=== PATIENT | female | born 1945 | race Hispanic/Latino ===

== ENCOUNTER 2018-05-22 07:22 | Observation (INO) | payer OTHER ==
[2018-05-22 07:29] VITALS: BMI 30.4
--- NOTE | 2018-05-22 08:18 | ED PDOC ---
Arrival/HPI - General Chief Complaint: Chest Pain Time Seen by Provider: 05/22/18 07:55 Historian: Patient - History of Present Illness Narrative History of Present Illness (Text): 05/22/18 08:20 A 72 y/o F w/ h/o GERD, diabetes, TIA, diverticulitis, and hiatal hernia, presents to the emergency department complaining of pressure-like chest pain and dizziness for the past week. Patient reports experiencing cold-like symptoms earlier this past week, which is now slowly resolving, and later began having diarrhea (pasty-like), intermittent nausea, lightheadedness, and flatulence. Patient denies any vomiting, leg swelling, or any other complaints at this time. Of note, she states she normally takes Protonix in the morning and 2 Advils (for bilateral leg pain). She did not take her medications this morning and has been unable to eat breakfast. Patient reports taking an Advil last night. She denies any history of smoking, having a colonoscopy (however admits to having endoscopy, revealing polyps 3-4 years ago), and no history of ulcers. She mentions also earlier this week having fallen to the floor after missing the chair, however denies any head trauma, neck pain or LOC. PMD: Dr. Domingo Augustin [employer] Production Professional: Dr. Self(cardiology) GI: Dr. Sorenson Time/Duration: 1 week Symptom Onset: Gradual Symptom Course: Unchanged Quality: Gas Like Severity Level: Moderate Activities at Onset: Rest Context: Home Past Medical History - Provider Review Nursing Documentation Reviewed: Yes - Infectious Disease Hx of Infectious Diseases: None - Tetanus Immunization Tetanus Immunization: Unknown - Cardiac Hx Cardiac Disorders: Yes Hx Hypertension: Yes - Pulmonary Hx Respiratory Disorders: No - Neurological Hx Neurological Disorder: No - HEENT Hx HEENT Disorder: Yes Hx Glaucoma: Yes - Renal Hx Renal Disorder: No - Endocrine/Metabolic Hx Endocrine Disorders: No - Hematological/Oncological Hx Blood Disorders: No - Integumentary Hx Dermatological Disorder: No - Musculoskeletal/Rheumatological Hx Arthritis: Yes - Gastrointestinal Hx Gastrointestinal Disorders: Yes Hx Gastroesophageal Reflux: Yes - Genitourinary/Gynecological Hx Genitourinary Disorders: Yes Hx Reproductive Disorders: Yes (hx partial hyst,tubal) - Psychiatric Hx Psychophysiologic Disorder: No Hx Depression: No Hx Emotional Abuse: No Hx Physical Abuse: No Hx Substance Use: No - Surgical History Hx Cholecystectomy: Yes Hx Hysterectomy: Yes (partial) Hx Orthopedic Surgery: Yes (l hip) - Anesthesia Hx Anesthesia: Yes Hx Anesthesia Reactions: No Hx Malignant Hyperthermia: No - Suicidal Assessment Feels Threatened In Home Enviroment: No Family/Social History - Physician Review Nursing Documentation Reviewed: Yes Family/Social History: No Known Family HX Smoking Status: Never Smoked Hx Alcohol Use: No Hx Substance Use: No Hx Substance Use Treatment: No Allergies/Home Meds Allergies/Adverse Reactions: Allergies tetracycline Allergy (Verified 05/22/18 11:51) SHORTNESS OF BREATH Home Medications: Home Meds Medication Instructions Recorded Confirmed Aspirin [Ecotrin] 1 tab PO DAILY 12/26/15 05/22/18 Bimatoprost [Lumigan] 1 drop OU DAILY 05/22/18 05/22/18 Bimatoprost [Lumigan] 1 drop OU DAILY 05/22/18 05/22/18 Pantoprazole Sodium [Protonix] 40 mg PO DAILY 05/22/18 05/22/18 Timolol 0.25% Ophth [Timoptic 1 drop OU DAILY 05/22/18 05/22/18 0.25% Ophth Soln] metFORMIN [glucOPHAGE] 500 mg PO BID 05/22/18 05/22/18 Review of Systems - Physician Review All systems were reviewed & negative as marked: Yes - Review of Systems Constitutional: absent: Fevers, Night Sweats Respiratory: absent: SOB, Cough Cardiovascular: Chest Pain (pressure-like) Gastrointestinal: Diarrhea (pasty-like, as patient describes.), Nausea ( intermittently), Other (gas). absent: Abdominal Pain, Vomiting Neurological: Dizziness (lightheadedness) Physical Exam Vital Signs Reviewed: Yes Vital Signs Temp Pulse Resp BP Pulse Ox 05/22/18 12:00 98.2 F 62 18 150/76 99 05/22/18 11:03 55 L 18 136/62 99 05/22/18 09:15 65 18 132/70 99 05/22/18 07:35 98.3 F 61 18 144/77 98 05/22/18 07:34 98.3 F 61 18 144/77 98 Temperature: Afebrile Blood Pressure: Normal Pulse: Regular Respiratory Rate: Normal Appearance: Positive for: Well-Appearing Pain Distress: None Mental Status: Positive for: Alert and Oriented X 3 - Systems Exam Head: Present: Atraumatic, Normocephalic Pupils: Present: PERRL Extroacular Muscles: Present: EOMI Conjunctiva: Present: Normal Mouth: Present: Moist Mucous Membranes Neck: Present: Normal Range of Motion Respiratory/Chest: Present: Clear to Auscultation, Good Air Exchange. No: Respiratory Distress, Accessory Muscle Use Cardiovascular: Present: Regular Rate and Rhythm, Normal S1, S2. No: Murmurs Abdomen: No: Tenderness, Distention, Peritoneal Signs Back: Present: Normal Inspection Upper Extremity: Present: Normal Inspection. No: Cyanosis, Edema Lower Extremity: Present: Normal Inspection. No: Edema Neurological: Present: GCS=15, CN II-XII Intact, Speech Normal Skin: Present: Warm, Dry, Normal Color. No: Rashes Psychiatric: Present: Alert, Oriented x 3, Normal Insight, Normal Concentration Medical Decision Making ED Course and Treatment: 05/22/18 08:30 Impression: 72 year old female with chest pressure, bloating and dizziness Differential Diagnosis included but are not limited to: ACS Gastroenteritis/Gastritis TIA Toxic metabolic encephalopathy Plan: -- EKG -- Head CT -- Chest X-ray -- Labs -- Urinalysis -- Pepcid -- IV Fluids -- Maalox -- Reassess and disposition Prior Visits: Notes and results from previous visits were reviewed. Patient was last seen in the emergency department on 11/04/2016 for tingling on lips, numbness and tingling of left lower leg/foot/toes, chest pressure. Patient was admitted. Progress Notes: EKG: Ordered, reviewed, and independently interpreted the EKG. Rate : 66 BPM Rhythm : NSR Interpretation : RBBBB Flipped T-waves in precordial leads. Comparison : No previous EKG for comparison. 05/22/2018 09:21 Chest X-ray IMPRESSION: No active pulmonary disease. Dictator: Alyssa Costello MD 05/22/2018 10:[address] IMPRESSION: No acute intracranial abnormality. A preliminary report was provided by [facility] services. Dictator: Alyssa Costello MD 05/22/18 11:25 Patient reassessed and still complaining of dizziness and sinus pressure. Spoke to Dr. Nazario Conner(hospitalist) who accepts patient for Observation. - Lab Interpretations Lab Results: 05/22/18 08:55 08/20/18 08:55 Lab Results 05/22/18 10:00: Free T4 1.23, TSH 3rd Generation 2.37 05/22/18 10:00: Hemoglobin A1c 7.0 H 05/22/18 08:55: Urine Color Yellow, Urine Appearance Clear, Urine pH 6.0, Ur Specific Merritt 1.010, Urine Protein Negative, Urine Glucose (UA) Negative, Urine Ketones Negative, Urine Blood Negative, Urine Nitrate Negative, Urine Bilirubin Negative, Urine Urobilinogen 0.2, Ur Leukocyte Esterase Trace H, Urine RBC 0 - 2, Urine WBC 1 - 3, Ur Epithelial Cells 3 - 4, Urine Bacteria Few 05/22/18 08:55: PT 11.4, INR 0.99, APTT 27.5 05/22/18 08:55: WBC 6.4, RBC 4.61, Hgb 13.7, Hct 40.9, MCV 88.7, MCH 29.7, MCHC 33.5, RDW 14.1, Plt Count 180, MPV 9.6, Gran % 48.3 L, Lymph % (Auto) 41.1 H, Greenwood % (Auto) 7.5 H, Eos % (Auto) 2.8, Baso % (Auto) 0.3, Gran # 3.10, Lymph # ( Auto) 2.6, Greenwood # (Auto) 0.5, Eos # (Auto) 0.2, Baso # (Auto) 0.02 05/22/18 08:55: Sodium 145, Potassium 3.7, Chloride 107, Carbon Dioxide 27, Anion Gap 15, BUN 11, Creatinine 0.7, Est GFR ( Amer) > 60, Est GFR (Non- Af Amer) > 60, Random Glucose 124 H, Calcium 9.0, Total Bilirubin 0.4, AST 34, ALT 43, Alkaline Phosphatase 67, Troponin I < 0.01, Total Protein 7.4, Albumin 4.1, Globulin 3.3, Albumin/Globulin Ratio 1.2, Lipase 54 - RAD Interpretation Radiology Orders: 05/22/18 08:09 HEAD W/O CONTRAST [CT] Stat 05/22/18 08:33 CHEST PORTABLE [RAD] Stat - Medication Orders Current Medication Orders: Acetaminophen (Tylenol 325mg Tab) 650 mg PO Q6H PRN PRN Reason: Fever >100.4 F Aspirin (Ecotrin) 81 mg PO DAILY ASHA Camphor/Menthol (Bengay) 0 gm TOP BID ASHA Last Admin: 05/22/18 17:05 Dose: 1 applic Insulin Human Regular (Humulin R Low) 0 units SC ACHS [facility] PRN Reason: Protocol Last Admin: 05/22/18 17:09 Dose: Not Given Non-Admin Reason: Blood Sugar Parameter MAR Blood Glucose Document 05/22/18 17:09 FRANK (Rec: 05/22/18 17:09 [facility] [id number]) Blood Glucose Finger Stick Blood Glucose (70-120) 92 Pantoprazole Sodium (Protonix Ec Tab) 40 mg PO DAILY [facility] Last Admin: 05/22/18 11:53 Dose: 40 mg Timolol Maleate (Timoptic 0.25% Ophth Soln) 1 drop OU DAILY [facility] Discontinued Medications Al Hydrox/Mg Hydrox/Simethicone (Maalox Plus 30 Ml) 30 ml PO STAT STA Stop: 05/22/18 08:35 Last Admin: 05/22/18 08:45 Dose: 30 ml Famotidine (Pepcid) 20 mg IVP STAT STA Stop: 05/22/18 08:35 Last Admin: 05/22/18 08:45 Dose: 20 mg IVP Administration Document 05/22/18 08:45 ASHLEY (Rec: 05/22/18 08:45 ASHLEY [email or web address]) Charges for Administration # of IVP Administrations 1 Sodium Chloride (Sodium Chloride 0.9%) 1,000 mls @ 999 mls/hr IV .Q1H1M STA Stop: 05/22/18 09:34 Last Admin: 05/22/18 08:45 Dose: 999 mls/hr eMAR Start Stop Document 05/22/18 08:45 ASHLEY (Rec: 05/22/18 08:45 ASHLEY [id number]) Intravenous Solution Start Date 05/22/18 Start Time 08:45 End Date 05/22/18 End time 09:45 Total Infusion Time 60 Meclizine HCl (Antivert) 25 mg PO STAT STA Stop: 05/22/18 10:28 Last Admin: 05/22/18 11:02 Dose: 25 mg Metoclopramide HCl (Reglan) 10 mg IVP STAT STA Stop: 05/22/18 10:27 Last Admin: 05/22/18 11:02 Dose: 10 mg IVP Administration Document 05/22/18 11:02 ASHLEY (Rec: 05/22/18 11:02 ASHLEY [id number]) Charges for Administration # of IVP Administrations 1 Pneumococcal Polyvalent Vaccine (Pneumovax 23 Vaccine) 0.5 ml IM .ONCE ONE Stop: 05/22/18 14:28 - Scribe Statement The provider has reviewed the documentation as recorded by the Maguiibe Janelle Olivares Provider Scribe Attestation: All medical record entries made by the Scribe were at my direction and personally dictated by me. I have reviewed the chart and agree that the record accurately reflects my personal performance of the history, physical exam, medical decision making, and the department course for this patient. I have also personally directed, reviewed, and agree with the discharge instructions and disposition. Disposition/Present on Arrival - Present on Arrival Any Indicators Present on Arrival: No History of DVT/PE: No History of Uncontrolled Diabetes: No Urinary Catheter: No History of Decub. Ulcer: No History Surgical Site Infection Following: None - Disposition Have Diagnosis and Disposition been Completed?: Yes Diagnosis: Dizziness Disposition: HOSPITALIZED Disposition Time: 11:33 Patient Plan: Observation Patient Problems: Current Active Problems Problem Status Onset Dizziness Acute Condition: STABLE
[2018-05-22] MEDS ORDERED: Sodium Chloride 0.9% 1,000 ML IV STA (08:34)
[2018-05-22] MEDS ORDERED: Alum-Mag Hydrox-Simethicone Susp (30 mL) PO STA (08:34)
[2018-05-22 09:20] LABS: BASO # 0.02 K/mm3 (0.0-2.0); BASO % 0.3 % (0.0-3.0); EOS # 0.2 (0.0-0.7); EOS % 2.8 % (1.5-5.0); GRAN # 3.1 (1.4-6.5); GRAN % 48.3 % (50.0-68.0); HEMOGLOBIN 13.7 g/dL (12.0-16.0); LYMPH # 2.6 (1.2-3.4); LYMPH % 41.1 % (22.0-35.0); MEAN CELL VOLUME 88.7 fl (80.0-105.0); MEAN CORPUSCULAR HEMOGLOBIN 29.7 pg (25.0-35.0); MEAN CORPUSCULAR HGB CONC 33.5 g/dl (31.0-37.0); MEAN PLATELET VOLUME 9.6 fl (7.0-11.0); MONO # 0.5 (0.1-0.6); MONO % 7.5 % (1.0-6.0); RBC 4.61 10^6/uL (3.5-6.1); RED CELL DISTRIBUTION WIDTH 14.1 % (11.5-14.5); WHITE BLOOD COUNT 6.4 10^3/ul (4.5-11.0)
[2018-05-22 09:22] LABS: URINE BILIRUBIN NEGATIVE (NEGATIVE); URINE BLOOD NEGATIVE (NEGATIVE); URINE GLUCOSE (UA) NEGATIVE (NEGATIVE); URINE LEUKOCYTE ESTERASE TRACE Leu/uL (NEGATIVE); URINE PROTEIN NEGATIVE mg/dL (<30 mg/dL); URINE UROBILINOGEN 0.2 E.U./dL (<1 E.U./dL)
--- NOTE | 2018-05-22 09:23 | RAD ---
Date of service: 05/22/2018 HISTORY: Shortness of breath COMPARISON: 11/04/2016. FINDINGS: LUNGS: The lungs are well inflated and clear. PLEURA: No significant pleural effusion identified, no pneumothorax apparent. CARDIOVASCULAR: There is mild cardiomegaly. OSSEOUS STRUCTURES: No significant abnormalities. VISUALIZED UPPER ABDOMEN: Normal. OTHER FINDINGS: None. IMPRESSION: No active pulmonary disease.
[2018-05-22 09:25] LABS: URINE APPEARANCE CLEAR (CLEAR); URINE COLOR YELLOW (YELLOW)
[2018-05-22 09:26] LABS: ALB/GLOB RATIO 1.2 (1.1-1.8); ALBUMIN 4.1 g/dL (3.0-4.8); ALT/SGPT 43 U/L (7-56); AST/SGOT 34 U/L (14-36); BLOOD UREA NITROGEN 11 mg/dL (7-21); GFR AFRICAN-AMERICAN > 60; GFR NON-AFRICAN AMERICAN > 60; LIPASE 54 U/L (23-300)
[2018-05-22 09:29] LABS: INR 0.99; PROTHROMBIN TIME 11.4 SECONDS (9.4-12.5)
[2018-05-22 09:33] LABS: URINE BACTERIA FEW (NEG); URINE RBC 0 - 2 /hpf (0-2)
[2018-05-22 09:35] LABS: PARTIAL THROMBOPLASTIN TIME 27.5 Seconds (25.1-36.5)
[2018-05-22 09:36] LABS: TROPONIN I < 0.01 ng/mL
--- NOTE | 2018-05-22 10:14 | CT ---
Date of service: 05/22/2018 PROCEDURE: CT HEAD WITHOUT CONTRAST. HISTORY: Headache COMPARISON: 11/04/2016 TECHNIQUE: Axial computed tomography images were obtained through the head/brain without intravenous contrast. Radiation dose: Total exam DLP = 837.97 mGy-cm. This CT exam was performed using one or more of the following dose reduction techniques: Automated exposure control, adjustment of the mA and/or kV according to patient size, and/or use of iterative reconstruction technique. FINDINGS: HEMORRHAGE: No intracranial hemorrhage. BRAIN: Valdez-white matter differentiation is preserved. There is no mass, mass effect or abnormal extra-axial fluid collection. There is no territorial infarction. The midline sagittal structures are normal. VENTRICLES: There is mild age-related global parenchymal volume loss and proportionate enlargement of the ventricles and cortical sulci. CALVARIUM: The skull base and calvarium are normal. PARANASAL SINUSES: Predominantly clear. MASTOID AIR CELLS: Predominantly clear. OTHER FINDINGS: None. IMPRESSION: No acute intracranial abnormality. A preliminary report was provided by [employer] services.
[2018-05-22] MEDS ORDERED: Timolol 0.25% Ophth SOLN OU SCH (11:30)
--- NOTE | 2018-05-22 11:50 | CP.PCM.HP ---
<Beronica Estrella - Last Filed: 05/22/18 13:50> History of Present Illness - History of Present Illness History of Present Illness: PGY-[address] Roblero C/O: Dizziness and CP, fall at home Ms Reddy, 72 F, with PMH includes GERD, diabetes, TIA, diverticulitis, hiatal hernia, and chronic back pain on daily advil, c/o Chest pain Pt reported chest pain started 1 week ago, onset while pt was at rest. The chest pain was pressure-like on mid chest, mild-moderate, on-off, radiation to R shoulder and bilateral chest. She had cold like symptoms with sore throat, stuffy nose that week, associated with diarrhea and flatulent. She also noticed dizziness and fell to the floor after missing the chair. She was not able to tolerate breakfast and meds today. Use uses advil twice every day for chronic back pain. She still has diarrhea today; last bowel movement was this morning. Denies recent antibiotics. No change in diet. No sick contact. She only had endoscopy in 2012,2013, showing mild gastritis. No h pylori. Last colonospy was more than 10 years ago. ROS: (+) lightheadedness, (+) CP, (+) dizziness worsen in movement, Denies FARRELL denies any vomiting, leg swelling, abdominal pain, blood in stool. Denies dysuria. BM used to be daily and regular ED course: VS stable CBC unremarkable CMP unremarkable Trops < 0.01 CXR - no active pulm disease Head CT - no acute intracrancial abnomality PMH TIA, 2016 Diabetes x 1 year Diverticultitis Hiatal hernia GERD Chronic back pain, monthly injection PSH Cholecystectomy, L hip replacement FH Father at 93 for [place]. Father had diabetes. Mother at 69 for diabeteis and [place] SH Denies smoking/drinking All Tetracycline - SOB Med Pt stopped ASA because of stomach pain Protonix in the morning and 2 Advils /day(for bilateral leg pain) metformin 500 bid timolol, lumigan PMD: Dr. Domingo Augustin (currently being covered by Dr. Young Roblero) Automatic Pinsetter Adjuster: Dr. Self GI: Dr. Sorenson Pain management: Dr Boyd, [place], [place] Present on Admission - Present on Admission Any Indicators Present on Admission: No Past Patient History - Infectious Disease Hx of Infectious Diseases: None - Tetanus Immunizations Tetanus Immunization: Unknown - Past Social History Smoking Status: Never Smoked - CARDIAC Hx Cardiac Disorders: Yes Hx Hypertension: Yes - PULMONARY Hx Respiratory Disorders: No - NEUROLOGICAL Hx Neurological Disorder: No - HEENT Hx HEENT Problems: Yes Hx Glaucoma: Yes - RENAL Hx Chronic Kidney Disease: No - ENDOCRINE/METABOLIC Hx Endocrine Disorders: No - HEMATOLOGICAL/ONCOLOGICAL Hx Blood Disorders: No - INTEGUMENTARY Hx Dermatological Problems: No - MUSCULOSKELETAL/RHEUMATOLOGICAL Hx Arthritis: Yes - GASTROINTESTINAL Hx Gastrointestinal Disorders: Yes Hx Gastroesophageal Reflux: Yes - GENITOURINARY/GYNECOLOGICAL Hx Genitourinary Disorders: Yes Hx Reproductive Disorders: Yes (hx partial hyst,tubal) - PSYCHIATRIC Hx Psychophysiologic Disorder: No Hx Depression: No Hx Emotional Abuse: No Hx Physical Abuse: No Hx Substance Use: No - SURGICAL HISTORY Hx Cholecystectomy: Yes Hx Hysterectomy: Yes (partial) Hx Orthopedic Surgery: Yes (l hip) - ANESTHESIA Hx Anesthesia: Yes Hx Anesthesia Reactions: No Hx Malignant Hyperthermia: No Meds Allergies/Adverse Reactions: Allergies Allergy/AdvReac Type Severity Reaction Status Date / Time tetracycline Allergy SHORTNESS Verified 05/22/18 11:51 OF BREATH Physical Exam - Constitutional Appears: No Acute Distress - Head Exam Head Exam: ATRAUMATIC, NORMAL INSPECTION, NORMOCEPHALIC - Eye Exam Eye Exam: EOMI, Normal appearance, PERRL. absent: Scleral icterus Pupil Exam: NORMAL ACCOMODATION - ENT Exam ENT Exam: Mucous Membranes Moist - Neck Exam Additional comments: supple - Respiratory Exam Respiratory Exam: Clear to Auscultation Bilateral, NORMAL BREATHING PATTERN. absent: Rales, Rhonchi, Wheezes - Cardiovascular Exam Cardiovascular Exam: REGULAR RHYTHM, +S1, +S2 - GI/Abdominal Exam GI & Abdominal Exam: Soft. absent: Tenderness - Extremities Exam Extremities exam: Positive for: normal capillary refill, pedal pulses present. Negative for: calf tenderness, pedal edema - Back Exam Back exam: absent: CVA tenderness (L), CVA tenderness (R) - Neurological Exam Neurological exam: Alert, CN II-XII Intact, Oriented x3 Additional comments: Danny-hallpike manuver: No nystagmus observed no slurring motor 5/5 sensroy intact - Psychiatric Exam Psychiatric exam: Normal Affect, Normal Mood - Skin Skin Exam: Dry, Warm Results - Vital Signs Recent Vital Signs: Last Vital Signs Temp 98.3 F 05/22/18 07:35 Pulse 55 L 05/22/18 11:03 Resp 18 05/22/18 11:03 BP 136/62 05/22/18 11:03 Pulse Ox 99 05/22/18 11:03 - Labs Result Diagrams: 05/22/18 08:55 05/22/18 08:55 Assessment & Plan - Assessment and Plan (Free Text) Plan: Ms Reddy, 72 F, with PMH includes GERD, diabetes, TIA, diverticulitis, hiatal hernia, and chronic back pain on advil twice daily, c/o Chest pain, dizziness, s/p 1 fall at home. Chest pain R/O ACS - Telemetry, serial trops/EKG - Echocardiogram - Cardiology consult - morphine PRN Questionable atypical chest pain from GERD worsen in setting of hiatal hernia Daily Advil use for chronic back pain - Follow up with Dr Sorenson outpatient for endoscopy and screening colonoscopy - Change to Bengay and tylenol PRN for back pain - Avoid NSAID. Follow up with Pain Managment Dr Boyd for monthly injection - Protonix daily or BID? Nausea/Diarrhea/flatulence, likely viral gastroenteritis - supportive management - Observe off antibiotics - High risk of Cdiff use to chronic protonix use - Tolerating diet of regular consistency Dizziness, likely due to dehydration of low oral intake, r/o neuro vs cardiac causes - Neuro consult - carotid doppler/echocardiogram - orthostatic VS Hx TIA - need aspirin daily. Will observe if pt tolerates it. No sign of GI bleed. Hb normal Fall - PT eval Hx Diabetes x 1 year - ISSS, accucheck Prophylaixs - SCD, continue protonix, OOB s/r/d/w Dr Roblero <Young Roblero S - Last Filed: 05/23/18 14:12> Results - Vital Signs Recent Vital Signs: Last Vital Signs Temp 98.4 F 05/23/18 08:15 Pulse 57 L 05/23/18 08:15 Resp 20 05/23/18 08:15 BP 134/74 05/23/18 08:15 Pulse Ox 97 05/23/18 08:15 - Labs Result Diagrams: 05/22/18 08:55 05/22/18 08:55 Labs: Laboratory Results - last 24 hr 05/22/18 05/22/18 05/22/18 16:17 16:32 21:02 POC Glucose (mg/dL) 92 93 Troponin I < 0.01 05/23/18 05/23/18 05/23/18 01:08 07:20 11:24 POC Glucose (mg/dL) 142 H 142 H Troponin I < 0.01 Assessment & Plan - Assessment and Plan (Free Text) Plan: Pt seen and examined. I have reviewed the note of the adjunct faculty for medical terminology and agree with it. I have discussed the assessment and plan with the resident. I have reviewed the patient's labs and medications. Pt with Dizziness, that has improved. She may have a gastroenteritis. Her blood work is reviewed and no significant changes. EkG and trop nl.Neuro evaluated pt. She will be discharged home.
[2018-05-22] MEDS: Pantoprazole 40 mg EC Tab PO SCH (11:53)
[2018-05-22 13:02] LABS: FREE T4 1.23 ng/dL (0.78-2.19)
[2018-05-22] MEDS ORDERED: Pneumococcal 23-Valent Vaccine IM ONE (14:27)
--- NOTE | 2018-05-22 15:28 | CON ---
Copied To: Carlos Bridges MD Attending MD: Carlos Bridges MD DATE: 05/22/2018 HISTORY OF PRESENT ILLNESS: This is a 72-year-old female with past medical history of diabetes, TIA, GERD, hiatus hernia, diverticulitis, came to the Emergency Room with pressure-like symptoms on the chest and felt dizzy for the last few days. The patient was having a cold-like symptoms for about a week, resolving and called to evaluate the patient for dizziness. PAST MEDICAL HISTORY: Diabetes, hypertension, TIA, GERD, and hiatus hernia. ALLERGIES: TETRACYCLINE. HOME MEDICATIONS: Ecotrin, Protonix, and metformin. REVIEW OF SYSTEMS: A 10-point review of systems was negative except dizziness. PHYSICAL EXAMINATION: VITAL SIGNS: Blood pressure 144/77. HEENT: Normocephalic and atraumatic. NECK: Supple. NEUROLOGIC: Alert, awake, and oriented x3. No aphasia. Cranial nerves II through XII are tested. Pupils reactive. EOM intact. Visual field full. No facial asymmetry. Tongue midline. Motor exam: Moves all the extremities equally. Tone normal. Deep tendon reflexes 1+. Both plantars are downgoing. Sensory appears intact. Cerebellar gait normal. IMPRESSION AND PLAN: Dizziness, possibly benign positional and also has some sinusitis. The patient is ambulating in the hallway, eating well . Workup in progress. Continue present management. We will follow up. Carlos Bridges MD
[2018-05-22] MEDS: Insulin Reg-LOW-Coverage SC SCH ×2 (17:09→21:02)
[2018-05-22] MEDS ORDERED: Menthol/Methyl Salicylate Ointment(1 oz) TOP SCH (18:00)
--- NOTE | 2018-05-22 18:29 | US ---
PROCEDURE: Bilateral carotid artery duplex ultrasound HISTORY: Carotid stenosis dizziness PHYSICIAN(S): Oren Augustin MD. TECHNIQUE: Duplex sonography and color-flow Doppler were used to evaluate the carotid bifurcations and limited segments of the vertebral arteries bilaterally. FINDINGS: There is mild smooth heterogeneous plaque noted at the carotid bifurcations bilaterally. The peak systolic velocity in the proximal right internal carotid artery is 68 cm/sec. This corresponds to a 20 to 39% proximal right ICA stenosis. Normal systolic velocities are noted in the proximal right external carotid artery. There is antegrade flow in the right vertebral artery. The peak systolic velocity in the proximal left internal carotid artery is 93 cm/sec. This corresponds to a 20 to 39% proximal left ICA stenosis. Normal systolic velocities are noted in the proximal left external carotid artery. There is antegrade flow in the left vertebral artery. IMPRESSION: 1. Bilateral 20-39% proximal ICA stenoses. 2. Antegrade flow in both vertebral arteries.
--- NOTE | 2018-05-22 21:28 | CARD ---
APPROVED REPORT Date of service: 05/22/2018 EKG Measurement Heart [id number] <Conclusion> Normal sinus rhythm Right bundle branch block Left anterior fascicular block Bifascicular block T wave abnormality, consider lateral ischemia Abnormal ECG
[2018-05-23 08:16] VITALS: BP 134/74; RESP 20; TEMP 98.4; O2SAT 97
[2018-05-23] MEDS: Insulin Reg-LOW-Coverage SC SCH ×2 (08:27→11:40)
[2018-05-23] MEDS: Pantoprazole 40 mg EC Tab PO SCH (10:40)
--- NOTE | 2018-05-23 14:56 | CP.PCM.PN ---
<Beronica Estrella - Last Filed: 05/23/18 14:52> Subjective - Date & Time of Evaluation Date of Evaluation: 05/23/18 Time of Evaluation: 07:00 - Subjective Subjective: PGY-[address] Roblero new onset urinary frequenct with sinusitis. CP persists, denie n/v/d/c. (+) dizziness same as yesterday Objective - Vital Signs/Intake and Output Vital Signs (last 24 hours): Temp Pulse Resp BP Pulse Ox 98.4 F 57 L 20 134/74 97 05/23/18 08:15 05/23/18 08:15 05/23/18 08:15 05/23/18 08:15 05/23/18 08:15 Intake and Output: 05/23/18 05/23/18 06:59 18:59 Intake Total 540 Balance 540 - Medications Medications: Current Medications Acetaminophen (Tylenol 325mg Tab) 650 mg PO Q6H PRN PRN Reason: Fever >100.4 F Amoxicillin/Clavulanate Potassium (Augmentin 500 Mg-125 Mg Tab) 1 tab PO Q12 ASHA PRN Reason: Protocol Aspirin (Ecotrin) 81 mg PO DAILY [facility] Last Admin: 05/23/18 10:40 Dose: 81 mg Camphor/Menthol (Bengay) 0 gm TOP BID [facility] Last Admin: 05/22/18 17:05 Dose: 1 applic Insulin Human Regular (Humulin R Low) 0 units SC ACHS ASHA PRN Reason: Protocol Last Admin: 05/23/18 11:40 Dose: Not Given Pantoprazole Sodium (Protonix Ec Tab) 40 mg PO DAILY [facility] Last Admin: 05/23/18 10:40 Dose: 40 mg Timolol Maleate (Timoptic 0.25% Ophth Soln) 1 drop OU DAILY ASHA Last Admin: 05/23/18 10:40 Dose: 1 drop - Labs Labs: PT 11.4 SECONDS (9.4-12.5) 05/22/18 08:55 INR 0.99 05/22/18 08:55 APTT 27.5 Seconds (25.1-36.5) 05/22/18 08:55 - Constitutional Appears: No Acute Distress - Head Exam Head Exam: ATRAUMATIC, NORMAL INSPECTION, NORMOCEPHALIC - Eye Exam Eye Exam: EOMI, Normal appearance, PERRL Pupil Exam: absent: NORMAL ACCOMODATION - ENT Exam ENT Exam: Mucous Membranes Moist Additional comments: maxillary tenderness post nasal drip - Neck Exam Additional comments: supple - Respiratory Exam Respiratory Exam: Clear to Ausculation Bilateral, NORMAL BREATHING PATTERN. absent: Rales, Rhonchi, Wheezes - Cardiovascular Exam Cardiovascular Exam: REGULAR RHYTHM, +S1, +S2 - GI/Abdominal Exam GI & Abdominal Exam: Soft, Tenderness (epigastric-mid chest, reproducible pain) - Extremities Exam Extremities Exam: Normal Capillary Refill. absent: Calf Tenderness, Pedal Edema - Back Exam Back Exam: absent: CVA tenderness (L), CVA tenderness (R) - Neurological Exam Neurological Exam: Alert, Awake, Oriented x3 - Psychiatric Exam Psychiatric exam: Normal Affect, Normal Mood - Skin Skin Exam: Dry, Warm Assessment and Plan - Assessment and Plan (Free Text) Plan: Ms Reddy, 72 F, with PMH includes GERD, diabetes, TIA, diverticulitis, hiatal hernia, and chronic back pain on advil twice daily, c/o Chest pain, dizziness, s/p 1 fall at home. Chest pain R/O ACS - Telemetry: bradycardia at night. Asymptomatic - serial trops neg x 3 - EKG: NSR, bifasicular block, TWI inferior leads - Echocardiogram - Cardiology consult Questionable atypical chest pain from GERD worsen in setting of hiatal hernia Daily Advil use for chronic back pain - Follow up with Dr Sorenson outpatient for endoscopy and screening colonoscopy - Change to Bengay and tylenol PRN for back pain - Avoid NSAID. Follow up with Pain Managment Dr Boyd for monthly injection - Protonix daily Nausea/Diarrhea/flatulence, likely viral gastroenteritis - improving UTI - supportive management - augmentin PO for both UTI and sinusitis - High risk of Cdiff use to chronic protonix use - Tolerating diet of regular consistency Dizziness, likely due to benign positional, sinusitis, and orthostatic hypotension Orthostatic hypotension R/O Cardiac causes - carotid doppler: non-obstructing - orthostatic VS (+): maintain adequate hydration. Avoid sudden positional changes - Bradycardia at night: Advise avoid sudden movement at night erica waking up to use bathroom Hx TIA - need aspirin daily. No sign of GI bleed. Hb normal Fall - PT eval Hx Diabetes x 1 year. A1C 7 - ISSS, accucheck Prophylaixs - SCD, continue protonix, OOB Discharge planning: Pending PT eval and card eval to r/o ACS s/r/d/w Dr Roblero <Young Roblero S - Last Filed: 05/24/18 21:09> Objective - Vital Signs/Intake and Output Vital Signs (last 24 hours): Temp Pulse Resp BP Pulse Ox 98.4 F 68 20 134/74 97 05/23/18 08:15 05/23/18 10:00 05/23/18 08:15 05/23/18 08:15 05/23/18 08:15 - Labs Labs: PT 11.4 SECONDS (9.4-12.5) 05/22/18 08:55 INR 0.99 05/22/18 08:55 APTT 27.5 Seconds (25.1-36.5) 05/22/18 08:55 Assessment and Plan - Assessment and Plan (Free Text) Plan: Pt seen and examined. I have reviewed the note of the medical device assembler and agree with it. I have discussed the assessment and plan with the resident. I have reviewed the patient's labs and medications. Pt had dizziness, she was seen by Cardio and cleared to go home. She will follow with pain management. DM- 2 is controlled. Will D/C home.
--- NOTE | 2018-05-23 14:57 | CON ---
Copied To: Oren Self MD Attending MD: Oren Self MD DATE: 05/23/2018 CARDIOLOGY CONSULTATION HISTORY: The patient is a 72-year-old woman, who presents with multiple complaints including headache, dysuria, dizziness, atypical chest pain, abdominal pain, diarrhea. But because of her complaint of chest pain, a Cardiology consultation was called. The patient's past medical history includes diabetes mellitus and hypertension. She underwent a stress test earlier this year, which was unremarkable. She has normal LV function. SOCIAL HISTORY: The patient does not smoke. REVIEW OF SYSTEMS: Fourteen-point review of systems was reviewed in detail. No cardiac complaints are noted. PHYSICAL EXAMINATION: VITAL SIGNS: Stable. NECK: Negative JVD. LUNGS: Without rales. HEART: Reveals S1, S2. EXTREMITIES: Without edema. LABORATORY DATA: Laboratories reveal EKG that shows right bundle-branch block. Laboratories reveal troponins that are negative. Echocardiogram reveals good LV function with no pulmonary hypertension. No LV outflow obstruction. IMPRESSION: 1. Atypical chest pain, likely due to #2. 2. Her abdominal symptoms. 3. History of abnormal electrocardiogram, which is at baseline. 4. Diabetes mellitus. 5. Hypertension. PLAN: Given these findings, there is no evidence for her chest pain be of cardiac origin. We can discontinue telemetry today from a cardiac perspective. The patient can be discharged. Oren Self MD
[2018-05-23] MEDS ORDERED: Amoxicillin-Clav 500-125 mg Tab PO SCH (15:00)
[2018-05-23 15:36] VITALS: PULSE 68
--- NOTE | 2018-05-23 17:54 | CARD ---
APPROVED REPORT Date of service: 05/23/2018 EXAM: Two-dimensional and M-mode echocardiogram with Doppler and color Doppler. INDICATION Chest Pain 2D DIMENSIONS Left Atrium (2D)4.4 (1.6-4.0cm)IVSd1.1 (0.7-1.1cm) LVDd5.1 (3.9-5.9cm)PWd1.1 (0.7-1.1cm) LVDs3.1 (2.5-4.0cm)FS (%) 38.2 % LVEF (%)68.2 (>50%) M-Mode DIMENSIONS Aortic Root3.70 (2.2-3.7cm)Aortic Cusp Exc.1.90 (1.5-2.0cm) Aortic Valve AoV Peak Aucxside515.0cm/Faith Peak GR.9mmHgAI P 1/2 Edvp090zn Mitral Valve MV E Yiizvexb20.2cm/sMV A Tlrlzxrd93.5cm/sE/A ratio0.8 TDI Lateral E' Peak V7.51cm/sMedial E' Peak V5.95cm/sE/Lateral E'7.7 E/Medial E'9.8 Pulmonary Valve PV Peak Eohwlnwy04.9cm/sPV Peak Grad.3mmHg Tricuspid Valve TR Peak Ufoitrbs265um/sRAP DUNDRIBM25tdIyXV Peak Gr.14mmHg [id number] LEFT VENTRICLE The left ventricle is normal size. There is normal left ventricular wall thickness. The left ventricular function is normal. The left ventricular ejection fraction is within the normal range. There is normal LV segmental wall motion. Transmitral Doppler flow pattern is Grade I-abnormal relaxation pattern. RIGHT VENTRICLE The right ventricle is normal size. There is normal right ventricular wall thickness. The right ventricular systolic function is normal. ATRIA The left atrium is borderline dilated. The right atrium size is normal. AORTIC VALVE The aortic valve is normal in structure. There is mild aortic regurgitation. There is no aortic valvular stenosis. MITRAL VALVE The mitral valve is normal in structure. There is no mitral valve regurgitation noted. TRICUSPID VALVE The tricuspid valve is normal in structure. There is no tricuspid valve regurgitation noted. PULMONIC VALVE The pulmonary valve is normal in structure. There is trace pulmonic valvular regurgitation. GREAT VESSELS The aortic root is borderline dilated The IVC is normal in size and collapses >50% with inspiration. <Conclusion> The left ventricle is normal size. There is normal left ventricular wall thickness. The left ventricular function is normal. The left ventricular ejection fraction is within the normal range. There is normal LV segmental wall motion. Transmitral Doppler flow pattern is Grade I-abnormal relaxation pattern. There is mild aortic regurgitation.
--- NOTE | 2018-05-24 11:22 | CP.PCM.DIS ---
Provider - Provider Date of Admission: 05/22/18 11:24 Attending physician: Young Roblero MD Primary care physician: Young Roblero MD Time Spent in preparation of Discharge (in minutes): 30 Diagnosis - Discharge Diagnosis (1) GERD (gastroesophageal reflux disease) Status: Acute (2) Abdominal pain Status: Acute (3) Chest pain Status: Acute Hospital Course - Lab Results Lab Results: Most Recent Lab Values WBC 6.4 10^3/ul (4.5-11.0) 05/22/18 08:55 RBC 4.61 10^6/uL (3.5-6.1) 05/22/18 08:55 Hgb 13.7 g/dL (12.0-16.0) 05/22/18 08:55 Hct 40.9 % (36.0-48.0) 05/22/18 08:55 MCV 88.7 fl (80.0-105.0) 05/22/18 08:55 MCH 29.7 pg (25.0-35.0) 05/22/18 08:55 MCHC 33.5 g/dl (31.0-37.0) 05/22/18 08:55 RDW 14.1 % (11.5-14.5) 05/22/18 08:55 Plt Count 180 10^3/uL (120.0-450.0) 05/22/18 08:55 MPV 9.6 fl (7.0-11.0) 05/22/18 08:55 Gran % 48.3 % (50.0-68.0) L 05/22/18 08:55 Lymph % (Auto) 41.1 % (22.0-35.0) H 05/22/18 08:55 [place] % (Auto) 7.5 % (1.0-6.0) H 05/22/18 08:55 Eos % (Auto) 2.8 % (1.5-5.0) 05/22/18 08:55 Baso % (Auto) 0.3 % (0.0-3.0) 05/22/18 08:55 Gran # 3.10 (1.4-6.5) 05/22/18 08:55 Lymph # (Auto) 2.6 (1.2-3.4) 05/22/18 08:55 [place] # (Auto) 0.5 (0.1-0.6) 05/22/18 08:55 Eos # (Auto) 0.2 (0.0-0.7) 05/22/18 08:55 Baso # (Auto) 0.02 K/mm3 (0.0-2.0) 05/22/18 08:55 PT 11.4 SECONDS (9.4-12.5) 05/22/18 08:55 INR 0.99 05/22/18 08:55 APTT 27.5 Seconds (25.1-36.5) 05/22/18 08:55 Sodium 145 mmol/L (132-148) 05/22/18 08:55 Potassium 3.7 mmol/L (3.6-5.0) 05/22/18 08:55 Chloride 107 mmol/L (98-107) 05/22/18 08:55 Carbon Dioxide 27 mmol/L (21-33) 05/22/18 08:55 Anion Gap 15 (10-20) 05/22/18 08:55 BUN 11 mg/dL (7-21) 05/22/18 08:55 Creatinine 0.7 mg/dl (0.7-1.2) 05/22/18 08:55 Est GFR ( Amer) > 60 05/22/18 08:55 Est GFR (Non-Af Amer) > 60 05/22/18 08:55 POC Glucose (mg/dL) 142 mg/dL (65-110) H 05/23/18 11:24 Random Glucose 124 mg/dL (70-110) H 05/22/18 08:55 Hemoglobin A1c 7.0 % (4.2-6.5) H 05/22/18 10:00 Calcium 9.0 mg/dL (8.4-10.5) 05/22/18 08:55 Total Bilirubin 0.4 mg/dL (0.2-1.3) 05/22/18 08:55 AST 34 U/L (14-36) 05/22/18 08:55 ALT 43 U/L (7-56) 05/22/18 08:55 Alkaline Phosphatase 67 U/L (38-126) 05/22/18 08:55 Troponin I < 0.01 ng/mL 05/23/18 01:08 Total Protein 7.4 g/dL (5.8-8.3) 05/22/18 08:55 Albumin 4.1 g/dL (3.0-4.8) 05/22/18 08:55 Globulin 3.3 gm/dL 05/22/18 08:55 Albumin/Globulin Ratio 1.2 (1.1-1.8) 05/22/18 08:55 Lipase 54 U/L (23-300) 05/22/18 08:55 Free T4 1.23 ng/dL (0.78-2.19) 05/22/18 10:00 TSH 3rd Generation 2.37 mIU/mL (0.46-4.68) 05/22/18 10:00 Urine Color Yellow (YELLOW) 05/22/18 08:55 Urine Appearance Clear (CLEAR) 05/22/18 08:55 Urine pH 6.0 (4.7-8.0) 05/22/18 08:55 Ur Specific [place] 1.010 (1.005-1.035) 05/22/18 08:55 Urine Protein Negative mg/dL (<30 mg/dL) 05/22/18 08:55 Urine Glucose (UA) Negative mg/dL (NEGATIVE) 05/22/18 08:55 Urine Ketones Negative mg/dL (NEGATIVE) 05/22/18 08:55 Urine Blood Negative (NEGATIVE) 05/22/18 08:55 Urine Nitrate Negative (NEGATIVE) 05/22/18 08:55 Urine Bilirubin Negative (NEGATIVE) 05/22/18 08:55 Urine Urobilinogen 0.2 E.U./dL (<1 E.U./dL) 05/22/18 08:55 Ur Leukocyte Esterase Trace [place]/uL (NEGATIVE) H 05/22/18 08:55 Urine RBC 0 - 2 /hpf (0-2) 05/22/18 08:55 Urine WBC 1 - 3 /hpf (0-6) 05/22/18 08:55 Ur Epithelial Cells 3 - 4 /hpf (0-5) 05/22/18 08:55 Urine Bacteria Few (NEG) 05/22/18 08:55 - Hospital Course Hospital Course: Ms Reddy, 72 F, with PMH includes GERD, diabetes, TIA, diverticulitis, hiatal hernia, and chronic back pain on advil twice daily, c/o Chest pain, dizziness, s/p 1 fall at home. Hospital course as follows Chest pain. had ruled out ACS - Telemetry: bradycardia at night. Asymptomatic - serial trops neg x 3 - EKG: NSR, bifasicular block, TWI inferior leads, which is pt's baseline - Echocardiogram done - Cardiology consult has ruled out ACS Atypical chest pain from GERD worsen in setting of hiatal hernia Daily Advil use for chronic back pain - Follow up with Dr Sorenson outpatient for endoscopy and screening colonoscopy - Change to Bengay and tylenol PRN for back pain - Avoid NSAID. Follow up with Pain Managment Dr Boyd for monthly injection - Protonix daily Nausea/Diarrhea/flatulence, likely viral gastroenteritis - resolved UTI - supportive management - augmentin PO for both UTI and sinusitis - High risk of Cdiff use to chronic protonix use - Tolerating diet of regular consistency Dizziness, likely due to benign positional, sinusitis, and orthostatic hypotension Orthostatic hypotension Had ruled out Cardiac causes - carotid doppler: non-obstructing - orthostatic VS (+): maintain adequate hydration. Avoid sudden positional changes - Bradycardia at night: Advise avoid sudden movement at night erica waking up to use bathroom Hx TIA - need aspirin daily. No sign of GI bleed. Hb normal Fall - PT eval states that pt is not a candidate for skilled service Hx Diabetes x 1 year. A1C 7 Discharge home with the above recommendations s/r/d/w Dr Roblero Discharge Exam - Head Exam Head Exam: ATRAUMATIC, NORMAL INSPECTION, NORMOCEPHALIC - Eye Exam Eye Exam: EOMI, Normal appearance, PERRL. absent: Scleral icterus Pupil Exam: NORMAL ACCOMODATION - ENT Exam ENT Exam: Mucous Membranes Moist - Neck Exam Additional comments: supple - Respiratory Exam Respiratory Exam: Clear to PA & Lateral, NORMAL BREATHING PATTERN. absent: Rales, Rhonchi, Wheezes - Cardiovascular Exam Cardiovascular Exam: REGULAR RHYTHM, +S1, +S2 Additional comments: reproducible pain mid chest to subxyphoid - GI/Abdominal Exam GI & Abdominal Exam: Soft, Tenderness (see card section). absent: Distended, Guarding, Rigid - Extremities Exam Extremities exam: normal capillary refill, pedal pulses present - Back Exam Back exam: absent: CVA tenderness (L), CVA tenderness (R) - Neurological Exam Neurological exam: Alert, CN II-XII Intact, Oriented x3 Additional comments: move extremities equally motor sensory grossly intact - Psychiatric Exam Psychiatric exam: Normal Affect, Normal Mood - Skin Skin Exam: Dry, Warm Discharge Plan - Discharge Medications Prescriptions: Amoxicillin/Clavulanate [Augmentin 500 MG-125 MG] 1 tab PO Q12 7 Days tab - Follow Up Plan Condition: STABLE Disposition: HOME/ ROUTINE Instructions: Dizziness, Nonvertigo, (DC) Additional Instructions: Follow up with Dr Sorenson outpatient for endoscopy and screening colonoscopy Finish the course of augmentin for sinusitis and UTI Referrals: Young Roblero MD [Primary Care Provider] - 2 Week Reuben Sorenson DO [Staff Provider] - 1 Week
== END 2018-05-23 16:01 | disposition home or self-care (01) ==
LOC: ED 07:22 → ERH 11:24 → 5RSO 12:28 → 3RSO 13:27
PROVIDERS: ADMIT Internal Medicine Nephrology; ATTEND Internal Medicine Nephrology
DX: K21.9 Gastro-esophageal reflux disease without esophagitis (principal); R07.89 Other chest pain; R42 Dizziness and giddiness; G89.29 Other chronic pain; E11.9 Type 2 diabetes mellitus without complications; K44.9 Diaphragmatic hernia without obstruction or gangrene; I10 Essential (primary) hypertension; Z86.73 Personal history of transient ischemic attack (TIA), and cerebral infarction without residual deficits; Z91.81 History of falling
CPT/HCPCS: 36415; 70450; 71045; 80053; 81001; 82948; 83036; 83690; 84439; 84443; 84484; 85025; 85610; 85730; 87086; 93005; 93306; 93880; 96361; 96374; 96375; 97116; 97161; 99285; G0378; G8978; G8979; G8980; J2765; J7030